=== PATIENT | female | born 1975 | race American Indian/Alaskan Native ===

== ENCOUNTER 2020-11-28 13:30 | Outpatient (CLI) | payer OTHER ==
--- NOTE | 2020-11-28 14:20 | XRay Report ---
BILATERAL KNEES 6 VIEWS INDICATION / CLINICAL INFORMATION: BILATERAL KNEE PAIN. COMPARISON: None available. 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 Signer Name: Román Ruvalcaba MD FACPreston Signed: 11/28/2020 2:16 PM Workstation Name: [id number]
--- NOTE | 2020-11-28 14:21 | XRay Report ---
CLINICAL DATA: BACK PAIN TECHNICAL DATA: AP and lateral views lumbar spine. FINDINGS: The bone mineralization is normal. Vertebral body heights are normal. Intervertebral disc spaces are well maintained. Pedicles and spinous processes are normal in alignment. SI joints and sacrum are nor mal. IMPRESSION: Normal examination lumbar spine. Signer Name: Montrell Cleaning MD Signed: 11/28/2020 2:16 PM Workstation Name: [id number]
== END 2020-11-28 13:31 | disposition home or self-care (01) ==
LOC: XRAY 13:30
PROVIDERS: ATTEND Internal Medicine
DX: M17.0 Bilateral primary osteoarthritis of knee (principal); M54.5 Low back pain
CPT/HCPCS: 72100